=== PATIENT | male | born 1995 ===

== ENCOUNTER 2016-10-28 16:00 | Emergency (ER) | payer OTHER ==
--- NOTE | 2016-10-28 17:18 | UC ---
Respiratory Complaint HPI - HPI Summary HPI Summary: 21 yo male with < 48 hours of f/c, runny nose cough and myalgias Roommate recently dxed with flu no hx asthma - History of Current Complaint Chief Complaint: UCGeneralIllness Stated Complaint: FEVER/ACHY/COUGH Time Seen by Provider: 10/28/16 17:06 Hx Obtained From: Patient Onset/Duration: Sudden Onset, Lasting Days Timing: Constant Severity Initially: Moderate Severity Currently: None Pain Intensity: 4 Pain Scale Used: 0-10 Numeric Character: Cough: Nonproductive Aggravating Factors: Nothing Alleviating Factors: Nothing Associated Signs And Symptoms: Positive: Fever, Chills, Nasal Congestion, Sinus Discomfort - Allergies/Home Medications Allergies/Adverse Reactions: Allergies Allergy/AdvReac Type Severity Reaction Status Date / Time No Known Allergies Allergy Verified 10/28/16 17:07 PMH/Surg Hx/FS Hx/Imm Hx Respiratory History Of: Denies: Asthma, Bronchitis - Surgical History Surgical History: None - Family History Known Family History: Negative: Cardiac Disease, Hypertension, Diabetes - Social History Alcohol Use: Occasionally Substance Use Type: None Smoking Status (MU): Never Smoked Tobacco Review of Systems Constitutional: Fever, Chills, Fatigue Skin: Negative Eyes: Negative ENT: Nasal Discharge Respiratory: Cough Cardiovascular: Negative Gastrointestinal: Negative Genitourinary: Negative Motor: Negative Neurovascular: Negative Musculoskeletal: Myalgia Neurological: Headache Psychological: Negative All Other Systems Reviewed And Are Negative: Yes Physical Exam Triage Information Reviewed: Yes Appearance: Well-Appearing, No Pain Distress, Well-Nourished Vital Signs: Initial Vital Signs Temp 98.7 F 10/28/16 17:02 Pulse 91 10/28/16 17:02 Resp 16 10/28/16 17:02 BP 139/84 10/28/16 17:02 Pulse Ox 100 10/28/16 17:02 Vital Signs Reviewed: Yes Eyes: Positive: Conjunctiva Clear ENT: Positive: Hearing grossly normal, Nasal congestion, Nasal drainage, TMs normal. Negative: TM bulging, TM dull, TM red, Tonsillar exudate, Trismus, Muffled/hoarse voice Dental Exam: Normal Neck: Positive: Supple, Nontender Respiratory: Positive: Lungs clear, Normal breath sounds, No respiratory distress, No accessory muscle use Cardiovascular: Positive: RRR, No Murmur Abdomen Description: Positive: Nontender, No Organomegaly Musculoskeletal: Positive: Strength Intact, ROM Intact, No Edema Neurological Exam: Normal Neurological: Positive: Alert Psychological Exam: Normal Skin Exam: Normal UC Diagnostic Evaluation - Laboratory O2 Sat by Pulse Oximetry: 100 - normal/not hypoxic Respiratory Course/Dx - Differential Dx/Diagnosis Provider Diagnoses: influenza Discharge - Discharge Plan Condition: Stable Disposition: HOME Prescriptions: Oseltamivir CAP* [Tamiflu CAP*] 75 mg PO BID #10 cap Patient Education Materials: Influenza (ED) Forms: *School Release, *Work Release Additional Instructions: rest fluids tylenol or advil for pain/fever
[2016-10-28 17:28] VITALS: BP 139/84
== END 2016-10-28 17:32 | disposition home or self-care (01) ==
LOC: UCCORT 16:00
DX: J11.1 Influenza due to unidentified influenza virus with other respiratory manifestations (principal)
CPT/HCPCS: 99202; G0463

== ENCOUNTER 2017-08-20 13:08 | Emergency (ER) | payer OTHER ==
[2017-08-20 13:26] VITALS: BP 145/84
[2017-08-20] MEDS ORDERED: Ondansetron ODT TAB* 4 MG PO ONE (13:40)
--- NOTE | 2017-08-20 14:39 | UC ---
FLU HPI - HPI Summary HPI Summary: ONE DAY OF NAUSEA VOMITING, DIFFUSE INTERMITTINET ABDOMINAL CRAMPING. NO KNOWN FEVERS (DOES NOT HAVE THERMOMETER). HAS BEEN DRINKING GATORADE. - History of Current Complaint Chief Complaint: UCGI Stated Complaint: STOMACH PAIN,LIGHT HEADED Time Seen by Provider: 08/20/17 13:34 Hx Obtained From: Patient Onset/Duration: Gradual Onset, Lasting Hours Severity Currently: Moderate Severity Initially: Moderate Pain Intensity: 4 Pain Scale Used: 0-10 Numeric Associated Signs & Symptoms: Positive: Vomiting. Negative: Fever, T Max, Myalgia, Cough, Sore Throat, Nasal Congestion, Diarrhea Related Hx: Possible Flu/Infectious Exposure - Risk Factors Influenza Risk Factors: Negative - Allergy/Home Medications Allergies/Adverse Reactions: Allergies Allergy/AdvReac Type Severity Reaction Status Date / Time No Known Allergies Allergy Verified 08/20/17 13:26 PMH/Surg Hx/FS Hx/Imm Hx Previously Healthy: Yes - Surgical History Surgical History: None - Family History Known Family History: Negative: Cardiac Disease, Hypertension, Diabetes - Social History Occupation: Employed Part-time, Student Lives: With Family Alcohol Use: Weekly Substance Use Type: None Smoking Status (MU): Never Smoked Tobacco Review of Systems Constitutional: Chills Skin: Negative Eyes: Negative ENT: Negative Respiratory: Negative Cardiovascular: Negative Gastrointestinal: Vomiting, Nausea Genitourinary: Negative Motor: Negative Neurovascular: Negative Musculoskeletal: Negative Neurological: Negative Psychological: Negative Is Patient Immunocompromised?: No All Other Systems Reviewed And Are Negative: Yes Physical Exam Triage Information Reviewed: Yes Appearance: Well-Appearing, No Pain Distress, Well-Nourished Vital Signs: Initial Vital Signs Temp 98.4 F 08/20/17 13:21 Pulse 81 08/20/17 13:21 Resp 16 08/20/17 13:21 BP 145/84 08/20/17 13:21 Pulse Ox 100 08/20/17 13:21 Vital Signs Reviewed: Yes Eye Exam: Normal ENT Exam: Normal ENT: Positive: Normal ENT inspection, Hearing grossly normal, Pharynx normal Dental Exam: Normal Neck exam: Normal Neck: Positive: Supple, Nontender, No Lymphadenopathy Respiratory Exam: Normal Respiratory: Positive: Chest non-tender, Lungs clear, Normal breath sounds, No respiratory distress, No accessory muscle use Cardiovascular Exam: Normal Cardiovascular: Positive: RRR, No Murmur, Pulses Normal, Brisk Capillary Refill Abdominal Exam: Normal - NO ABDOMINAL TENDERNESS; NO PAIN WITH PALPATION OF QUADRANTS, NEGATIVE HEELSTRIKE. Abdomen Description: Positive: Nontender, No Organomegaly, Soft Musculoskeletal Exam: Normal Neurological Exam: Normal Psychological Exam: Normal Skin Exam: Normal Flu Course/Dx - Course Course Of Treatment: PATIENT ADVISED TO SEEK IMMEDIATE CARE AT EMERGENCY DEPARTMENT IF CONDITION WORSENS OR IF NEW SYMPTOMS DEVELOP. - Differential Dx/Diagnosis Differential Diagnosis/HQI/PQRI: Influenza, Upper Respiratory Infection Provider Diagnoses: GASTROENTERITIS Discharge - Discharge Plan Condition: Stable Disposition: HOME Prescriptions: Ondansetron ODT TAB* [Zofran 4 MG Odt TAB*] 4 mg PO Q8H PRN #6 tab.odt PRN Reason: Vomiting Patient Education Materials: Gastroenteritis (ED), Acute Nausea and Vomiting ( ED) Forms: *School Release, *Work Release Referrals: Non Staff,Doctor [Primary Care Provider] - Additional Instructions: PLEASE SEEK IMMEDIATE EVALUATION AT THE EMERGENCY DEPARTMENT IF YOU EXPERIENCE WORSENING OR NEW ABDOMINAL PAIN OR IF ANY NEW SYMPTOMS DEVELOP.
== END 2017-08-20 14:18 | disposition home or self-care (01) ==
LOC: UCCORT 13:08
DX: K52.9 Noninfective gastroenteritis and colitis, unspecified (principal)
CPT/HCPCS: 87502; 99212; A9270-GY; G0463